=== PATIENT | male | born 1980 | race Caucasian/White ===

== ENCOUNTER 2019-11-08 15:16 | Emergency (ER) | payer OTHER ==
[~2019-11-08] VITALS: Ht 190.5 cm; Wt 151.4 kg
[2019-11-08 15:26] VITALS: BP 111/84
--- NOTE | 2019-11-08 16:44 | NUR ---
DIRECTOR MONEY: PT TO ROOM FROM NESSA GRIFFITH
--- NOTE | 2019-11-08 16:48 | NUR ---
PATIENT WALKED BACK FROM TRIAGE WITH CHIEF C/O FINGER LACERATION TO RIGHT PINKY FINGER. PATIENT WAS AT WORK AND WAS WORKING ON METAL LATHE WHEN HE SLICED HIS FINGER OPEN. FINGER BANDAGED UP. NO ACUTE SIGNS OF DISTRESS, PATIENT IS A&OX4, CALL LIGHT WITHIN REACH. Addendum: 11/08/19 at 1719 by HLARASofy CORRECTION TO PREVIOUS NOTE: LACERATION IS ON LEFT PINKY.
[2019-11-08] MEDS ORDERED: PANT20TA4 PO (16:56)
[2019-11-08] MEDS ORDERED: LISI-167 PO (16:56)
[2019-11-08] MEDS ORDERED: LISI-170 PO (17:00)
[2019-11-08] MEDS ORDERED: DIPH,PERTUSS(ACELL),TET VAC/PF 0.5 ML IM-VACC ONE ×2 (17:28→18:00)
[2019-11-08] MEDS ORDERED: LIDOCAINE-MPF 2% ,5ML ONE (17:28)
--- NOTE | 2019-11-08 17:43 | NUR ---
TdaP VACCINE GIVEN, FINGER LACERATION CLEANED OUT AND SUTURE TRAY SET UP.
--- NOTE | 2019-11-08 17:54 | NUR ---
PROVIDER AT BEDSIDE TO DO STITCHES ON LACERATION.
[2019-11-08] MEDS ORDERED: LIDOCAINE-MPF 1%, 5ML INFIL ONE (18:00)
[2019-11-08] MEDS ORDERED: NEOSPORIN OINT. PKT 1 PACKET ONE (18:18)
--- NOTE | 2019-11-08 18:33 | NUR ---
Patient given discharge instructions and prescription and they have confirmed that they understand the instructions, no questions asked. Worker's Comp paperwork filled out by provider and given to patient. All patient belongings gathered by patient. Patient ambulatory with steady gait to discharge desk.
== END 2019-11-08 18:34 | disposition home or self-care (01) ==
LOC: ED 17:16
DX: S61.217A Laceration without foreign body of left little finger without damage to nail, initial encounter (principal); I10 Essential (primary) hypertension; K21.9 Gastro-esophageal reflux disease without esophagitis; W45.8XXA Other foreign body or object entering through skin, initial encounter; Y93.89 Activity, other specified; Y92.69 Other specified industrial and construction area as the place of occurrence of the external cause; Y99.0 Civilian activity done for income or pay
CPT/HCPCS: 12041; 90471; 90715; 99284